=== PATIENT | male | born 1970 | race Caucasian/White ===

== ENCOUNTER 2017-01-15 21:36 | Emergency (ER) | payer MEDICARE ==
[~2017-01-15] VITALS: Ht 162.6 cm; Wt 90.0 kg
[2017-01-15] MEDS ORDERED: MELO-273 PO (22:18)
[2017-01-15] MEDS ORDERED: PROP10 PO (22:18)
[2017-01-15] MEDS ORDERED: HYDR25 PO (22:18)
[2017-01-15] MEDS ORDERED: DULO60CA44 PO (22:18)
[2017-01-15 23:15] VITALS: BP 144/93
== END 2017-01-15 23:21 | disposition home or self-care (01) ==
LOC: EMS 21:39
DX: H10.89 Other conjunctivitis (principal); I10 Essential (primary) hypertension
CPT/HCPCS: 99283